=== PATIENT | female | born 1955 | race American Indian/Alaskan Native ===

== ENCOUNTER 2016-11-02 15:51 | Emergency (ER) | payer MEDICAID ==
[2016-11-02 16:54] LABS: Eosinophils % (Auto) 2.3 % (0.0-4.3); Hematocrit 28.4 % (30.3-42.9); Mean Corpuscular HGB Conc 32 % (30-34); Mean Corpuscular Hemoglobin 24 pg (28-32); Mean Corpuscular Volume 77 fl (79-97); Platelet Count 429 K/mm3 (140-440); Red Blood Count 3.67 M/mm3 (3.65-5.03); White Blood Count 5.5 K/mm3 (4.5-11.0)
--- NOTE | 2016-11-02 22:00 | Emergency Department Report ---
ED Female HPI - General Chief complaint: Vaginal Bleeding Stated complaint: VAGINAL BLEEDING Time Seen by Provider: 11/02/16 21:59 Source: patient Mode of arrival: Ambulatory Limitations: No Limitations - History of Present Illness Initial comments: Patient is a 61-year-old female with a history of dysfunctional uterine uterine bleeding for the last year. He presents to the ER today for increased bleeding times one day. Patient reports she went through 5 cemetery pads today. Patient has been passing large clots and increased bleeding which is different from her normal vaginal bleeding. Patient hasn't following with Dr. Anderson and was supposed to see a specialist but could not due to ID issues. The last time the patient was evaluated by an PRIMARY HEALTH CARE NURSE was 3 months ago. She also reports left leg pain times one month and intermittent shortness of breath with exertion times one month. Otherwise no fevers, chills, PALOM[place], N,V,D, , CP, abdominal pain, recent travel, trauma, or sick contacts MD Complaint: vaginal bleeding -: year(s) Severity: moderate Improves with: none Worsens with: none Are you Now?: No Associated Symptoms: vaginal bleeding - Related Data Home Medications Medication Instructions Recorded Confirmed Last Taken Calcium Carbonate [ Calcium 600 mg PO DAILY 09/11/15 09/18/15 09/17/15 21:00 Elemental 600 mg] Cholecalciferol (Vitamin D3) 1,000 unit PO DAILY 09/11/15 09/18/15 09/17/15 21: 00 [Vitamin D] Previous Rx's Medication Instructions Recorded Last Taken Type Ferrous Sulfate [Feosol 325 MG tab] 325 mg PO TID #90 tablet 07/10/15 09/17/15 21:00 Rx medroxyPROGESTERone ACETATE 10 mg PO BID #60 tablet 07/10/15 09/17/15 21:00 Rx [Provera] HYDROcodone/APAP 5-325 [[place] 1 each PO Q6HR PRN #10 tablet 09/18/15 Unknown Rx 5-325 mg TAB] Allergies Allergy/AdvReac Type Severity Reaction Status Date / Time Penicillins Allergy Severe Anaphylaxis Verified 07/03/16 13:44 ED Review of Systems ROS: Stated complaint: VAGINAL BLEEDING Other details as noted in HPI Comment: All other systems reviewed and negative ED Past Medical Hx - Past Medical History Previous Medical History?: Yes Hx Hypertension: No Hx Congestive Heart Failure: No Hx Diabetes: No Hx GERD: Yes (occas) Hx Arthritis: Yes Hx Seizures: No Hx Asthma: No Hx COPD: No Additional medical history: gallstones - Surgical History Past Surgical History?: Yes Additional Surgical History: - Social History Smoking Status: Former Smoker Substance Use Type: None - Medications Home Medications: Home Medications Medication Instructions Recorded Confirmed Last Taken Type Ferrous Sulfate [Feosol 325 MG tab] 325 mg PO TID #90 tablet 07/10/15 09/18/15 09/17/15 21:00 Rx medroxyPROGESTERone ACETATE 10 mg PO BID #60 tablet 07/10/15 09/18/15 09/17/15 21:00 Rx [Provera] Calcium Carbonate [ Calcium 600 mg PO DAILY 09/11/15 09/18/15 09/17/15 21:00 History Elemental 600 mg] Cholecalciferol (Vitamin D3) 1,000 unit PO DAILY 09/11/15 09/18/15 09/17/15 21: 00 History [Vitamin D] HYDROcodone/APAP 5-325 [[place] 1 each PO Q6HR PRN #10 tablet 09/18/15 Unknown Rx 5-325 mg TAB] ED Physical Exam - General Limitations: No Limitations General appearance: alert, in no apparent distress - Head Head exam: Present: atraumatic, normocephalic - Eye Eye exam: Present: normal appearance - ENT ENT exam: Present: mucous membranes moist - Neck Neck exam: Present: normal inspection - Respiratory Respiratory exam: Present: normal lung sounds bilaterally. Absent: respiratory distress - Cardiovascular Cardiovascular Exam: Present: regular rate, normal rhythm. Absent: systolic murmur, diastolic murmur, rubs, gallop - GI/Abdominal GI/Abdominal exam: Present: soft, normal bowel sounds - Extremities Exam Extremities exam: Present: normal inspection, tenderness (left anterior and posterior leg ), normal capillary refill, calf tenderness. Absent: pedal edema , joint swelling - Back Exam Back exam: Present: normal inspection - Neurological Exam Neurological exam: Present: alert, oriented X3 - Psychiatric Psychiatric exam: Present: normal affect, normal mood - Skin Skin exam: Present: warm, dry, intact, normal color. Absent: rash ED Course Vital Signs 11/02/16 11/02/16 11/02/16 15:54 21:12 21:17 Temperature 97.4 F L 98.1 F 98.1 F Pulse Rate 83 54 L 54 L Respiratory 18 18 18 Rate Blood Pressure 140/91 140/81 Blood Pressure 140/81 [Right] O2 Sat by Pulse 99 99 99 Oximetry 11/02/16 11/02/16 22:33 23:47 Temperature 98 F 98 F Pulse Rate 85 88 Respiratory 18 18 Rate Blood Pressure Blood Pressure 123/61 154/72 [Right] O2 Sat by Pulse 99 97 Oximetry ED Medical Decision Making - Lab Data Result diagrams: 11/02/16 16:33 - Radiology Data Radiology results: report reviewed Left lower extremity duplex reviewed peroneal vein could not be viewed due to habitus otherwise no DVT noted. Results discussed with the patient and instructed the patient if she continues to have leg pain in the next few days she needs a repeat ultrasound of her leg. Patient understood. Results of her blood work discussed with the patient and her family at the bedside patient aware her hemoglobin is 9. Patient will be given a prescription to repeat her H and H in 2 days. Patient instructed to return to the ER if she has increased dizziness, shortness of breath, chest pain, and or increased vaginal bleeding. Critical care attestation.: If time is entered above; I have spent that time in minutes in the direct care of this critically ill patient, excluding procedure time. ED Disposition Clinical Impression: Dysfunctional uterine bleeding, Anemia, Left leg pain Disposition: DISCHARGED TO HOME OR SELFCARE Is pt being admited?: No Condition: Stable Instructions: Arthralgia (ED), Dysfunctional Uterine Bleeding (ED), Anemia (ED) Additional Instructions: Patient given a Rx for hemoglobin and hematocrit in 2 days return to the ED for increased bleeding, SOB, and/or dizziness, chest pain. follow up with your manager [facility] for your chronic DUB Referrals: MORE ANDERSON [Other] - 3-5 Days
[2016-11-03 02:04] VITALS: BP 153/77
== END 2016-11-03 02:04 | disposition home or self-care (01) ==
LOC: ED 15:51
DX: N93.8 Other specified abnormal uterine and vaginal bleeding (principal); D64.9 Anemia, unspecified; M79.605 Pain in left leg; K21.9 Gastro-esophageal reflux disease without esophagitis; Z87.891 Personal history of nicotine dependence; Z88.0 Allergy status to penicillin
CPT/HCPCS: 36415; 84702; 85025; 85379; 86850; 86900; 86901

== ENCOUNTER 2018-08-11 02:33 | Emergency (ER) | payer MEDICAID, SELFPAY ==
[2018-08-11 02:52] VITALS: BP 169/80
[2018-08-11] MEDS ORDERED: NACL 0.9% 1000 ML 1,000 ML IV ONE (03:02)
[2018-08-11 03:22] LABS: Basophils # (Auto) 0.1 K/mm3 (0.0-0.1); Basophils % (Auto) 1.3 % (0.0-1.8); Eosinophils # (Auto) 0.2 K/mm3 (0.0-0.4); Eosinophils % (Auto) 3.4 % (0.0-4.3); Hematocrit 35.4 % (30.3-42.9); Hemoglobin 11.3 gm/dl (10.1-14.3); Lymphocytes # (Auto) 1.7 K/mm3 (1.2-5.4); Mean Corpuscular HGB Conc 32 % (30-34); Mean Corpuscular Volume 86 fl (79-97); Monocytes # (Auto) 0.3 K/mm3 (0.0-0.8); Monocytes % (Auto) 5.4 % (0.0-7.3); Platelet Count 366 K/mm3 (140-440); Red Blood Count 4.11 M/mm3 (3.65-5.03); Red Cell Distribution Width 15.1 % (13.2-15.2)
[2018-08-11 03:26] LABS: Bilirubin,Urine NEG (Negative); Blood,Urine LG (Negative); Color,Urine Yellow (Yellow); Mucus,Urine FEW /HPF; Protein,Urine <15 mg/dL mg/dL (Negative); Urobilinogen,Urine < 2.0 mg/dL (<2.0)
[2018-08-11 03:37] LABS: Alanine Aminotransferase 8 units/L (7-56); Albumin 4.5 g/dL (3.9-5); BUN/Creatinine Ratio 8; Blood Urea Nitrogen 5 mg/dL (7-17); Calcium 9.2 mg/dL (8.4-10.2); Hemolysis Index 36
--- NOTE | 2018-08-11 03:41 | Emergency Department Report ---
ED Abdominal Pain HPI - General Chief Complaint: Urogenital-Female Stated Complaint: BLLOD CLOTS IN URINE Time Seen by Provider: 08/11/18 03:28 Source: patient Mode of arrival: Stretcher Limitations: No Limitations - History of Present Illness Initial Comments: Patient is 62 years old female with history of hypertension. Patient presented to the ER complaining of right flank pain that radiates to the suprapubic area. Patient started having pain last evening. She describes her pain as intermittent. Patient also stated that she has been passing clots in her urine. Patient denied any fever, nausea or vomiting. MD Complaint: flank pain -: Last night Location: R flank Radiation: suprapubic Migration to: no migration Severity: moderate Severity scale (0 -10): 5 Consistency: intermittent - Related Data Home Medications Medication Instructions Recorded Confirmed Last Taken Calcium Carbonate [ Calcium 600 mg PO DAILY 09/11/15 03/20/17 09/17/15 21:00 Elemental 600 mg] Cholecalciferol (Vitamin D3) 1,000 unit PO DAILY 09/11/15 03/20/17 09/17/15 21:00 [Vitamin D3] Previous Rx's Medication Instructions Recorded Last Taken Type Docusate Sodium [Colace] 100 mg PO BID #60 capsule 03/21/17 Unknown Rx Famotidine [Pepcid] 20 mg PO BID #60 tablet 03/21/17 Unknown Rx Ferrous Sulfate [Feosol 325 MG tab] 325 mg PO TID #90 tablet 03/21/17 Unknown Rx medroxyPROGESTERone ACETATE 10 mg PO BID #60 tablet 03/21/17 Unknown Rx [Provera] Allergies Allergy/AdvReac Type Severity Reaction Status Date / Time Penicillins Allergy Severe Anaphylaxis Verified 07/03/16 13:44 ED Review of Systems ROS: Stated complaint: BLLOD CLOTS IN URINE Other details as noted in HPI Comment: All other systems reviewed and negative Constitutional: denies: chills, fever Respiratory: denies: cough, orthopnea, shortness of breath, SOB with exertion, SOB at rest Cardiovascular: denies: chest pain, palpitations, dyspnea on exertion Gastrointestinal: abdominal pain. denies: nausea, vomiting, diarrhea, constipation, hematemesis, melena, hematochezia Genitourinary: hematuria Musculoskeletal: back pain Neurological: denies: headache, weakness, numbness, paresthesias, confusion, abnormal gait ED Past Medical Hx - Past Medical History Previous Medical History?: Yes Hx Hypertension: Yes Hx Congestive Heart Failure: No Hx Diabetes: Yes Hx GERD: Yes (occas) Hx Arthritis: Yes Hx Seizures: No Hx Kidney Stones: Yes Hx Asthma: No Hx COPD: No Additional medical history: gallstones - Surgical History Past Surgical History?: No Hx Coronary Stent: No Hx Open Heart Surgery: No Hx Pacemaker: No Hx Internal Defibrillator: No Hx Cholecystectomy: No Hx Appendectomy: No Hx Breast Surgery: No Additional Surgical History: - Social History Smoking Status: Never Smoker Substance Use Type: None - Medications Home Medications: Home Medications Medication Instructions Recorded Confirmed Last Taken Type Calcium Carbonate [ Calcium 600 mg PO DAILY 09/11/15 03/20/17 09/17/15 21:00 History Elemental 600 mg] Cholecalciferol (Vitamin D3) 1,000 unit PO DAILY 09/11/15 03/20/17 09/17/15 21:00 History [Vitamin D3] Docusate Sodium [Colace] 100 mg PO BID #60 capsule 03/21/17 Unknown Rx Famotidine [Pepcid] 20 mg PO BID #60 tablet 03/21/17 Unknown Rx Ferrous Sulfate [Feosol 325 MG tab] 325 mg PO TID #90 tablet 03/21/17 Unknown Rx medroxyPROGESTERone ACETATE 10 mg PO BID #60 tablet 03/21/17 Unknown Rx [Provera] ED Physical Exam - General Limitations: No Limitations General appearance: alert, in no apparent distress - Head Head exam: Present: atraumatic, normocephalic, normal inspection - Eye Eye exam: Present: normal appearance - ENT ENT exam: Present: normal exam, normal orophraynx, mucous membranes moist - Neck Neck exam: Present: normal inspection, full ROM. Absent: tenderness, meningismus, lymphadenopathy, thyromegaly - Respiratory Respiratory exam: Present: normal lung sounds bilaterally - Cardiovascular Cardiovascular Exam: Present: regular rate, normal rhythm, normal heart sounds - GI/Abdominal GI/Abdominal exam: Present: soft, normal bowel sounds. Absent: distended, tenderness, guarding, rebound, rigid, organomegaly, mass, bruit, pulsatile mass, hernia - Extremities Exam Extremities exam: Present: normal inspection, full ROM, normal capillary refill. Absent: pedal edema, calf tenderness - Back Exam Back exam: Present: normal inspection, full ROM, CVA tenderness (R). Absent: tenderness, CVA tenderness (L), muscle spasm, paraspinal tenderness, vertebral tenderness - Neurological Exam Neurological exam: Present: alert, oriented X3, CN II-XII intact, normal gait, reflexes normal - Skin Skin exam: Present: warm, intact, normal color ED Course Vital Signs 08/11/18 02:42 Temperature 97.5 F L Pulse Rate 80 Respiratory 12 Rate Blood Pressure 169/80 O2 Sat by Pulse 98 Oximetry ED Medical Decision Making - Lab Data Result diagrams: 08/11/18 03:08 08/11/18 03:08 - Radiology Data Radiology results: report reviewed Referring Physician: VICKY CHRISTIANSON Patient Name: BRYAN MELCHOR Date of : 1955 Sex: Female Report Date: 2018-08-11 Report Status: [place] [address] Cat Scan Report Signed Patient: BRYAN MELCHOR MR#: [id number] : 1955 Acct:[id number] Age/Sex: 62 / F ADM Date: 08/11/18 Loc: ED Attending Dr: Ordering Physician: VICKY CHRISTIANSON Date of Service: 08/11/18 Procedure(s): CT abdomen pelvis wo con Accession Number(s): [id number] cc: VICKY CHRISTIANSON FINAL REPORT EXAM: CT ABDOMEN PELVIS WO CON HISTORY: right flank pain, hematuria TECHNIQUE: Routine axial imaging was obtained of the abdomen and pelvis without oral or IV contrast. Sagittal and coronal reconstructions were reviewed. FINDINGS: The lung bases are negative for infiltrates or effusions. There is a small hiatal hernia. The liver, gallbladder, biliary tree, pancreas, spleen, and adrenal glands appear normal. The kidneys show no evidence of stones or hydronephrosis. The bowel loops are normal in caliber and course. There are few scattered uncomplicated colonic diverticula in the descending colon. The appendix is not enlarged. There is no evidence of free fluid or adenopathy. In the pelvis the uterus is enlarged containing coarse calcifications suggesting involuted fibroids. Bladder appears normal. The skeletal structures reveal multilevel disc degeneration lumbar spine with additional arthritic changes of the SI joints and symphysis pubis. IMPRESSION: No acute process in the abdomen and pelvis. No evidence of renal stones or hydronephrosis. Normal appendix. Uncomplicated colonic diverticula in the descending colon. Degenerative arthritic changes lumbar spine, SI joints and symphysis pubis. Transcribed By: RB Dictated By: ROEL FERREIRA MD Electronically Authenticated By: ROEL FERREIRA MD Signed Date/Time: 08/11/18531 DD/ 2 TD/TT: 08/11/18532 - Medical Decision Making Patient is 62 years old female with history of hypertension. Patient presented to the ER complaining of right flank pain that radiates to the suprapubic area. Patient started having pain last evening. She describes her pain as intermittent. Patient also stated that she has been passing clots in her urine. Patient denied any fever, nausea or vomiting. Patient is pain-free. She stated that she is feeling much better. CT abdomen and pelvis did not show anything acute. UTI is present in the urine with hematuria. I will start patient on ciprofloxacin and advised her to follow up with her primary care physician in the next 2-3 days. Critical care attestation.: If time is entered above; I have spent that time in minutes in the direct care of this critically ill patient, excluding procedure time. ED Disposition Clinical Impression: Abdominal pain, UTI (urinary tract infection) Disposition: - TO HOME OR SELFCARE Is pt being admited?: No Condition: Stable Instructions: Abdominal Pain (ED), Urinary Tract Infection in Women (ED) Referrals: PRIMARY CAREMD [Referring] - 3-5 Days
[2018-08-11 04:04] LABS: INR 0.91 (0.87-1.13)
[2018-08-11 04:05] LABS: Partial Thromboplastin Time 23.1 Sec. (24.2-36.6)
--- NOTE | 2018-08-11 05:32 | Cat Scan Report ---
FINAL REPORT EXAM: CT ABDOMEN PELVIS WO CON HISTORY: right flank pain, hematuria TECHNIQUE: Routine axial imaging was obtained of the abdomen and pelvis without oral or IV contrast. Sagittal and coronal reconstructions were reviewed. FINDINGS: The lung bases are negative for infiltrates or effusions. There is a small hiatal hernia. The liver, gallbladder, biliary tree, pancreas, spleen, and adrenal glands appear normal. The kidneys show no evidence of stones or hydronephrosis. The bowel loops are normal in caliber and course. Ther e are few scattered uncomplicated colonic diverticula in the descending colon. The appendix is not en larged. There is no evidence of free fluid or adenopathy. In the pelvis the uterus is enlarged contai toi coarse calcifications suggesting involuted fibroids. Bladder appears normal. The skeletal struct ures reveal multilevel disc degeneration lumbar spine with additional arthritic changes of the SI jocelyn nts and symphysis pubis. IMPRESSION: No acute process in the abdomen and pelvis. No evidence of renal stones or hydronephrosis. Normal appendix. Uncomplicated colonic diverticula in the descending colon. Degenerative arthritic changes lumbar spine, SI joints and symphysis pubis.
== END 2018-08-11 06:50 | disposition home or self-care (01) ==
LOC: ED 02:33
DX: N39.0 Urinary tract infection, site not specified (principal); I10 Essential (primary) hypertension; E11.9 Type 2 diabetes mellitus without complications; Z87.442 Personal history of urinary calculi; Z88.0 Allergy status to penicillin
CPT/HCPCS: 36415; 74176; 80053; 81001; 85025; 85610; 85730; 99284; J7030

== ENCOUNTER 2019-01-12 13:56 | Emergency (ER) | payer MEDICAID ==
[2019-01-12] MEDS ORDERED: NACL 0.9% 1000 ML 1,000 ML IV ONE (15:49)
[2019-01-12 16:23] LABS: Basophils # (Auto) 0.1 K/mm3 (0.0-0.1); Eosinophils # (Auto) 0.1 K/mm3 (0.0-0.4); Eosinophils % (Auto) 0.6 % (0.0-4.3); Hematocrit 36.8 % (30.3-42.9); Hemoglobin 11.6 gm/dl (10.1-14.3); Lymphocytes # (Auto) 1.1 K/mm3 (1.2-5.4); Lymphocytes % (Auto) 13.5 % (13.4-35.0); Mean Corpuscular HGB Conc 32 % (30-34); Mean Corpuscular Volume 77 fl (79-97); Monocytes # (Auto) 0.5 K/mm3 (0.0-0.8); Monocytes % (Auto) 5.6 % (0.0-7.3); Platelet Count 362 K/mm3 (140-440); Red Blood Count 4.79 M/mm3 (3.65-5.03)
[2019-01-12 16:45] LABS: Bilirubin,Urine NEG (Negative); Blood,Urine MOD (Negative); Color,Urine Yellow (Yellow); Hyaline Casts,Urine 18 /LPF; Mucus,Urine 3+ /HPF; Urobilinogen,Urine < 2.0 mg/dL (<2.0)
[2019-01-12 17:01] LABS: Alanine Aminotransferase 9 units/L (7-56); Albumin 4.4 g/dL (3.9-5); BUN/Creatinine Ratio 14; Blood Urea Nitrogen 11 mg/dL (7-17); Hemolysis Index 39
[2019-01-12 18:38] VITALS: BP 127/60
--- NOTE | 2019-01-12 18:55 | Cat Scan Report ---
PROCEDURE: CT HEAD/BRAIN WO CON TECHNIQUE: Computerized tomography of the head was performed without contrast material. CT DOSE LENGTH PRODUCT: 920.5 mGycm HISTORY: Syncope COMPARISONS: Head CT dated March 20, 2017 . FINDINGS: There is no evidence of an acute intracranial process or intracranial hemorrhage. Again noted is the bony sella enlargement which is largely CSF filled consistent with an "empty sella ". The ventricles are normal size. The visualized portions of the orbits, paranasal and mastoid sinuses are notable for mild to moderate left maxillary sinus and left ethmoid sinus mucosal thickening. The bony structures are unremarkable. There is no evidence of fracture. IMPRESSION: 1. No evidence of an acute intracranial process nor intracranial hemorrhage. 2. Repeat demonstration of bony sella enlargement which is largely CSF filled consistent with an "emp ty sella". 2. No evidence of fracture. 3. Left maxillary and ethmoid sinus mucosal thickening.. This document is electronically signed by Jessie Nelson MD., January 12 2019 06:53:51 PM ET
--- NOTE | 2019-01-12 19:00 | Emergency Department Report ---
ED Syncope HPI - General Chief Complaint: Syncope Stated Complaint: FALL Time Seen by Provider: 01/12/19 15:49 - History of Present Illness Initial Comments: pt reports ground level fall after syncopal episode. Pt states she was getting up from her chair and felt lightheaded and dizzy and fell to the floor. pt denies hitting her head. Timing/Prior Episodes: no prior history Precipitating Factors: Positive: none Context: standing Loss of Consciousness: brief (seconds) Current Symptoms: back to normal - Related Data Allergies/Adverse Reactions: Allergies Penicillins Allergy (Severe, Verified 07/03/16 13:44) Anaphylaxis face and neck swell, along with rash. Home Medications: Ambulatory Orders Calcium Carbonate [ Calcium Elemental 600 mg] 600 mg PO DAILY 09/11/15 Cholecalciferol (Vitamin D3) [Vitamin D3] 1,000 unit PO DAILY 09/11/15 Docusate Sodium [Colace] 100 mg PO BID #60 capsule 03/21/17 Famotidine [Pepcid] 20 mg PO BID #60 tablet 03/21/17 Ferrous Sulfate [Feosol 325 MG tab] 325 mg PO TID #90 tablet 03/21/17 medroxyPROGESTERone ACETATE [Provera] 10 mg PO BID #60 tablet 03/21/17 Ciprofloxacin HCl [Ciprofloxacin TAB] 500 mg PO Q12H #14 tab 08/11/18 Ketorolac [Toradol] 10 mg PO Q6H PRN #20 tablet 08/11/18 Ciprofloxacin HCl [Ciprofloxacin TAB] 500 mg PO Q12HR #14 tab 01/12/19 ED Review of Systems ROS: Stated complaint: FALL Other details as noted in HPI Comment: All other systems reviewed and negative Constitutional: no symptoms reported Respiratory: denies: cough, orthopnea Cardiovascular: denies: chest pain, palpitations Endocrine: denies: excessive sweating, flushing Gastrointestinal: denies: abdominal pain, nausea Genitourinary: denies: urgency Skin: denies: rash Neurological: denies: headache, weakness, numbness, paresthesias, confusion ED Past Medical Hx - Past Medical History Hx Hypertension: Yes Hx Congestive Heart Failure: No Hx Diabetes: Yes Hx GERD: Yes (occas) Hx Arthritis: Yes Hx Seizures: No Hx Kidney Stones: Yes Hx Asthma: No Hx COPD: No Additional medical history: gallstones - Surgical History Hx Coronary Stent: No Hx Open Heart Surgery: No Hx Pacemaker: No Hx Internal Defibrillator: No Hx Cholecystectomy: No Hx Appendectomy: No Hx Breast Surgery: No Additional Surgical History: - Social History Smoking Status: Former Smoker Substance Use Type: None - Medications Home Medications: Home Medications Medication Instructions Recorded Confirmed Last Taken Type Calcium Carbonate [ Calcium 600 mg PO DAILY 09/11/15 03/20/17 09/17/15 21:00 History Elemental 600 mg] Cholecalciferol (Vitamin D3) 1,000 unit PO DAILY 09/11/15 03/20/17 09/17/15 21:00 History [Vitamin D3] Docusate Sodium [Colace] 100 mg PO BID #60 capsule 03/21/17 Unknown Rx Famotidine [Pepcid] 20 mg PO BID #60 tablet 03/21/17 Unknown Rx Ferrous Sulfate [Feosol 325 MG tab] 325 mg PO TID #90 tablet 03/21/17 Unknown Rx medroxyPROGESTERone ACETATE 10 mg PO BID #60 tablet 03/21/17 Unknown Rx [Provera] Ciprofloxacin HCl [Ciprofloxacin 500 mg PO Q12H #14 tab 08/11/18 Unknown Rx TAB] Ketorolac [Toradol] 10 mg PO Q6H PRN #20 tablet 08/11/18 Unknown Rx Ciprofloxacin HCl [Ciprofloxacin 500 mg PO Q12HR #14 tab 01/12/19 Unknown Rx TAB] ED Physical Exam - General Limitations: No Limitations General appearance: alert, in no apparent distress - Head Head exam: Present: atraumatic, normocephalic - Eye Eye exam: Present: normal appearance, PERRL, EOMI Pupils: Present: normal accommodation - ENT ENT exam: Present: normal exam, normal orophraynx - Neck Neck exam: Present: normal inspection - Respiratory Respiratory exam: Present: normal lung sounds bilaterally - Cardiovascular Cardiovascular Exam: Present: regular rate, normal rhythm - GI/Abdominal GI/Abdominal exam: Present: soft - Extremities Exam Extremities exam: Present: normal inspection - Back Exam Back exam: Present: normal inspection - Neurological Exam Neurological exam: Present: alert, oriented X3 - Psychiatric Psychiatric exam: Present: normal affect, normal mood ED Course Vital Signs 01/12/19 01/12/19 01/12/19 14:00 15:29 15:31 Temperature 98.1 F Pulse Rate 89 84 85 Respiratory 18 17 11 L Rate Blood Pressure 136/77 122/72 Blood Pressure 144/97 [Right] O2 Sat by Pulse 99 100 99 Oximetry 01/12/19 01/12/19 01/12/19 16:07 17:01 18:13 Temperature Pulse Rate 89 Respiratory 18 16 Rate Blood Pressure 144/97 138/70 127/60 Blood Pressure [Right] O2 Sat by Pulse 100 98 99 Oximetry ED Medical Decision Making - Lab Data Result diagrams: 01/12/19 16:07 01/12/19 16:07 - EKG Data -: EKG Interpreted by Me EKG shows normal: sinus rhythm Rate: normal - EKG Data When compared to previous EKG there are: no significant change Interpretation: no acute changes 01/12/19 19:07 Rate 74 - Medical Decision Making pt reports ground level fall after syncopal episode. Pt states she was getting up from her chair and felt lightheaded and dizzy and fell to the floor. pt denies hitting her head. Patient observed in ED in no new symptoms. Feels better, urine is consistent with infection, we discharge home. - Differential Diagnosis syncope, vasovagal syncope, orthostatic hypotension Critical care attestation.: If time is entered above; I have spent that time in minutes in the direct care of this critically ill patient, excluding procedure time. ED Disposition Clinical Impression: Syncope Qualifiers: Syncope type: vasovagal syncope Qualified Code(s): R55 - Syncope and collapse UTI (urinary tract infection) Qualifiers: Urinary tract infection type: acute cystitis Hematuria presence: without hematuria Qualified Code(s): N30.00 - Acute cystitis without hematuria Disposition: - TO HOME OR SELFCARE Is pt being admited?: No Does the pt Need Aspirin: No Condition: Stable Instructions: Urinary Tract Infection in Women (ED), Syncope (ED), Dysuria (ED) Prescriptions: Ciprofloxacin HCl [Ciprofloxacin TAB] 500 mg PO Q12HR #14 tab Referrals: KIM MEYERS MD [Primary Care Provider] - 3-5 Days
== END 2019-01-12 19:55 | disposition home or self-care (01) ==
LOC: ED 13:56
DX: R55 Syncope and collapse (principal); R42 Dizziness and giddiness; N30.00 Acute cystitis without hematuria; I10 Essential (primary) hypertension; E11.9 Type 2 diabetes mellitus without complications; M19.90 Unspecified osteoarthritis, unspecified site; Z87.891 Personal history of nicotine dependence; Z87.442 Personal history of urinary calculi; Z88.0 Allergy status to penicillin; W18.30XA Fall on same level, unspecified, initial encounter; Y93.89 Activity, other specified; Y92.89 Other specified places as the place of occurrence of the external cause; Y99.8 Other external cause status
CPT/HCPCS: 36415; 70450; 80053; 81001; 84484; 85025; 87086; 93005; 93010; 96360; 96361; 99285; J7030

== ENCOUNTER 2021-11-21 14:14 | Emergency (ER) | payer MEDICAID ==
--- NOTE | 2021-11-21 16:03 | XRay Report ---
CHEST 1 VIEW 11/21/2021 3:36 PM INDICATION / CLINICAL INFORMATION: cp. COMPARISON: 03/20/2017. FINDINGS: SUPPORT DEVICES: None. HEART / MEDIASTINUM: No significant abnormality. LUNGS / PLEURA: No significant pulmonary or pleural abnormality. No pneumothorax. ADDITIONAL FINDINGS: No significant additional findings. IMPRESSION: No acute abnormality. Signer Name: Getachew Estrella MD Signed: 11/21/2021 3:58 PM Workstation Name: [id number]
[2021-11-21 16:42] LABS: Blood Urea Nitrogen 5 mg/dL (7-17); Calcium 9.6 mg/dL (8.4-10.2); Hemolysis Index 2
[2021-11-21 16:43] LABS: BUN/Creatinine Ratio 10
--- NOTE | 2021-11-21 16:51 | Emergency Department Report ---
ED Chest Pain HPI - General Chief Complaint: Chest Pain Stated Complaint: VAG BLEEDING PUI?: No Time Seen by Provider: 11/21/21 16:45 Source: EMS Mode of arrival: Stretcher Limitations: No Limitations - History of Present Illness Initial Comments: Patient is a 66-year-old female who presents emergency room with right-sided chest pain. Patient states her chest pain started 4 hours ago. Patient states the chest pain is better with rest and worse with movement. Patient states the pain is also worse with palpation. Patient denies fever and chills. Patient denies left-sided chest pain. Patient denies shortness of breath. Patient states the chest pain was nonradiating. Patient states she is also having vaginal bleeding. Patient dates she has a history of fibroids and is interested in a hysterectomy. Patient denies abdominal pain. Patient denies recent travel. Patient denies recent international travel. [place] ent denies exposure to the novel coronavirus. Patient denies sick contacts. Patient denies fever and chills. Patient denies cough. Patient denies diarrhea. Patient denies coming in contact with anybody with symptoms of the novel coronavirus. MD Complaint: chest pain -: Sudden Onset: during rest Pain Location: right chest Pain Radiation: none Severity scale (0 -10): 6 Quality: sharp Consistency: constant Improves With: rest Worsens With: palpation, movement re: denies: nausea, vomting, diaphoresis, dyspnea, sense of impending doom Other Symptoms: denies: cough, fever, syncope, rash, acid taste in mouth, leg swelling, palpitations, burping Treatments Prior to Arrival: none Aspirin use within the Past 7 Days: (1) Yes - Related Data On Oral Contraceptives: No Home Medications Medication Instructions Recorded Confirmed Last Taken Calcium Carbonate [ Calcium 600 mg PO DAILY 09/11/15 03/20/17 09/17/15 21:00 Elemental 600 mg] Cholecalciferol (Vitamin D3) 1,000 unit PO DAILY 09/11/15 03/20/17 09/17/15 21:00 [Vitamin D3] Previous Rx's Medication Instructions Recorded Last Taken Type Docusate Sodium [Colace] 100 mg PO BID #60 capsule 03/21/17 Unknown Rx Famotidine [Pepcid] 20 mg PO BID #60 tablet 03/21/17 Unknown Rx Ferrous Sulfate [Feosol 325 MG tab] 325 mg PO TID #90 tablet 03/21/17 Unknown Rx medroxyPROGESTERone ACETATE 10 mg PO BID #60 tablet 03/21/17 Unknown Rx [Provera] Ciprofloxacin HCl [Ciprofloxacin 500 mg PO Q12H #14 tab 08/11/18 Unknown Rx TAB] Ketorolac [Toradol] 10 mg PO Q6H PRN #20 tablet 08/11/18 Unknown Rx Ciprofloxacin HCl [Ciprofloxacin 500 mg PO Q12HR #14 tab 01/12/19 Unknown Rx TAB] Ferrous Sulfate [Ferrous Sulfate 324 mg PO TID #30 tablet.dr 03/26/19 Unknown Rx 324 MG] Ibuprofen [Motrin 600 MG tab] 600 mg PO Q8H PRN #20 tablet 03/26/19 Unknown Rx medroxyPROGESTERone ACETATE 5 mg PO QDAY #7 tablet 03/26/19 Unknown Rx [Provera] Iron Fum,Ps/Folic/Bcomp,C No.9 1 each PO BID 30 Days #60 cap 11/21/21 Unknown Rx [Integra Plus Capsule] traMADoL [Ultram 50 MG tab] 50 mg PO Q6HR PRN #12 tablet 11/21/21 Unknown Rx Allergies Allergy/AdvReac Type Severity Reaction Status Date / Time Penicillins Allergy Severe Anaphylaxis Verified 07/03/16 13:44 Heart Score - HEART Score History: Slightly suspicious EKG: Normal Age: 45-65 Risk factors: 1-2 risk factors Troponin: < normal limit HEART Score: 2 - EKG Read Time Time EKG Completed: 00:00 EKG Read Time: 00:00 ED Review of Systems ROS: Stated complaint: VAG BLEEDING Other details as noted in HPI Constitutional: denies: chills, fever Eyes: denies: eye pain, eye discharge, vision change ENT: denies: ear pain, throat pain Respiratory: denies: cough, shortness of breath, wheezing Cardiovascular: as per HPI, chest pain. denies: palpitations Endocrine: no symptoms reported Gastrointestinal: denies: abdominal pain, nausea, diarrhea Genitourinary: denies: urgency, dysuria, discharge Musculoskeletal: denies: back pain, joint swelling, arthralgia Skin: denies: rash, lesions Neurological: denies: headache, weakness, paresthesias Psychiatric: denies: anxiety, depression Hematological/Lymphatic: denies: easy bleeding, easy bruising ED Past Medical Hx - Past Medical History Previous Medical History?: Yes Hx Hypertension: Yes Hx Congestive Heart Failure: No Hx Diabetes: Yes Hx GERD: Yes (occas) Hx Arthritis: Yes Hx Seizures: No Hx Kidney Stones: Yes Hx Asthma: No Hx COPD: No Additional medical history: gallstones - Surgical History Past Surgical History?: Yes Hx Coronary Stent: No Hx Open Heart Surgery: No Hx Pacemaker: No Hx Internal Defibrillator: No Hx Cholecystectomy: No Hx Appendectomy: No Hx Breast Surgery: No Additional Surgical History: - Family History Family history: no significant - Social History Smoking Status: Never Smoker Substance Use Type: None - Medications Home Medications: Home Medications Medication Instructions Recorded Confirmed Last Taken Type Calcium Carbonate [ Calcium 600 mg PO DAILY 09/11/15 03/20/17 09/17/15 21:00 History Elemental 600 mg] Cholecalciferol (Vitamin D3) 1,000 unit PO DAILY 09/11/15 03/20/17 09/17/15 21:00 History [Vitamin D3] Docusate Sodium [Colace] 100 mg PO BID #60 capsule 03/21/17 Unknown Rx Famotidine [Pepcid] 20 mg PO BID #60 tablet 03/21/17 Unknown Rx Ferrous Sulfate [Feosol 325 MG tab] 325 mg PO TID #90 tablet 03/21/17 Unknown Rx medroxyPROGESTERone ACETATE 10 mg PO BID #60 tablet 03/21/17 Unknown Rx [Provera] Ciprofloxacin HCl [Ciprofloxacin 500 mg PO Q12H #14 tab 08/11/18 Unknown Rx TAB] Ketorolac [Toradol] 10 mg PO Q6H PRN #20 tablet 08/11/18 Unknown Rx Ciprofloxacin HCl [Ciprofloxacin 500 mg PO Q12HR #14 tab 01/12/19 Unknown Rx TAB] Ferrous Sulfate [Ferrous Sulfate 324 mg PO TID #30 tablet. 03/26/19 Unknown Rx 324 MG] Ibuprofen [Motrin 600 MG tab] 600 mg PO Q8H PRN #20 tablet 03/26/19 Unknown Rx medroxyPROGESTERone ACETATE 5 mg PO QDAY #7 tablet 03/26/19 Unknown Rx [Provera] Iron Fum,Ps/Folic/Bcomp,C No.9 1 each PO BID 30 Days #60 cap 11/21/21 Unknown Rx [Integra Plus Capsule] traMADoL [Ultram 50 MG tab] 50 mg PO Q6HR PRN #12 tablet 11/21/21 Unknown Rx ED Physical Exam - General Limitations: No Limitations General appearance: alert, in no apparent distress - Head Head exam: Present: atraumatic, normocephalic - Eye Eye exam: Present: normal appearance - ENT ENT exam: Present: mucous membranes moist - Neck Neck exam: Present: normal inspection - Respiratory Respiratory exam: Present: normal lung sounds bilaterally, chest wall tenderness (Right-sided chest tenderness to palpation. Palpation of the right-sided chest reproduces symptoms.). Absent: respiratory distress - Cardiovascular Cardiovascular Exam: Present: regular rate, normal rhythm. Absent: systolic murmur, diastolic murmur, rubs, gallop - GI/Abdominal GI/Abdominal exam: Present: soft, normal bowel sounds - Extremities Exam Extremities exam: Present: normal inspection - Back Exam Back exam: Present: normal inspection - Neurological Exam Neurological exam: Present: alert, oriented X3 - Psychiatric Psychiatric exam: Present: normal affect, normal mood - Skin Skin exam: Present: warm, dry, intact, normal color. Absent: rash ED Course Vital Signs 11/21/21 11/21/21 11/21/21 14:48 16:46 17:00 Temperature 98.1 F Pulse Rate 77 68 68 Respiratory 16 15 12 Rate Blood Pressure 129/77 123/64 Blood Pressure 128/77 [Right] O2 Sat by Pulse 98 97 96 Oximetry 11/21/21 17:30 Temperature Pulse Rate 63 Respiratory 18 Rate Blood Pressure 130/70 Blood Pressure [Right] O2 Sat by Pulse 96 Oximetry - Reevaluation(s) Reevaluation #1: Patient states the pain has resolved. I discussed all results and clinical findings with patient. I discussed plan of care with patient. Patient agrees with plan of care. Patient is stable for discharge. Patient will be discharged home. Patient given discharge instructions. Patient voiced understanding of discharge instructions. 11/21/21 18:27 RITESH score - Ritesh Score Age > 65: (0) No Aspirin use within the Past 7 Days: (0) No 3 or more CAD Risk Factors: (0) No 2 or more Angina events in past 24 hrs: (0) No Known CAD with more than 50% Stenosis: (0) No Elevated Cardiac Markers: (0) No ST Deviation Greater than 0.5mm: (0) No RITESH Score: 0 ED Medical Decision Making - Lab Data Result diagrams: 11/21/21 16:05 11/21/21 16:05 - EKG Data -: EKG Interpreted by Me EKG shows normal: sinus rhythm, axis, intervals, QRS complexes, ST-T waves Rate: normal - Radiology Data Radiology results: report reviewed, image reviewed interpreted by me: Chest x-ray: No pneumonia, no pneumothorax, no foreign body, no osseous findings, no acute findings CHEST 1 VIEW 11/21/2021 3:36 PM INDICATION / CLINICAL INFORMATION: cp. COMPARISON: 03/20/2017. FINDINGS: SUPPORT DEVICES: None. HEART / MEDIASTINUM: No significant abnormality. LUNGS / PLEURA: No significant pulmonary or pleural abnormality. No pneumothorax. ADDITIONAL FINDINGS: No significant additional findings. IMPRESSION: No acute abnormality. - Medical Decision Making Patient is a 66-year-old female that presents emergency room for right-sided chest pain and dysfunctional uterine bleeding. Patient states she been having abnormal uterine bleeding due to fibroids for many months. Patient states she is already taking iron. Patient states she is not compliant with her iron at times. Patient had a cardiac work-up and was essentially unremarkable. Patient's patient's chest pain is on the right side and is reproducible with palpation. Patient has right-sided chest wall tenderness. Patient's labs are essentially markable except for anemia. Patient will be given an iron supplement. Patient had a chest x-ray which was negative for acute findings. Patient had EKG which was negative for acute findings. I personally reviewed EKG and chest x-ray. Patient is stable for discharge. Patient not require any further emergency medical service. Patient not require inpatient services. I discussed all results and clinical findings with patient. I discussed plan of care with patient. Patient agrees with plan of care. Patient is stable for discharge. Patient will be discharged home. Patient given discharge instructions. Patient voiced understanding of discharge instructions. - Differential Diagnosis Chest wall pain, dysfunctional uterine bleeding, fibroid, anemia Critical care attestation.: If time is entered above; I have spent that time in minutes in the direct care of this critically ill patient, excluding procedure time. ED Disposition Clinical Impression: Abnormal uterine bleeding, DUB (dysfunctional uterine bleeding), Right-sided chest wall pain Anemia Qualifiers: Anemia type: unspecified type Qualified Code(s): D64.9 - Anemia, unspecified Disposition: 01 HOME / SELF CARE / HOMELESS Is pt being admited?: No Does the pt Need Aspirin: No Condition: Stable Instructions: Nonspecific Chest Pain, Adult Additional Instructions: Patient to follow-up with primary care in 2 to 3 days. Patient to follow-up with [facility] in 2 to 3 days. Patient to rest. Patient to increase water. Patient to avoid strenuous exercise or heavy lifting until cleared by [facility]. Patient to take Tylenol or ibuprofen as needed for pain. Patient to take meds as directed. Patient to return to the ER if condition worsens, changes or new s ymptoms arise. Prescriptions: Iron Fum,Ps/Folic/Bcomp,C No.9 [Integra Plus Capsule] 1 each PO BID 30 Days #60 cap traMADoL [Ultram 50 MG tab] 50 mg PO Q6HR PRN #12 tablet PRN Reason: Pain Referrals: PRIMARY CAREMD [Primary Care Provider] - 2-3 Days MIKE KWOK MD [Staff Physician] - 2-3 Days Time of Disposition: 18:31
[2021-11-21 16:55] LABS: Basophils % (Auto) 0.9 % (0.0-1.8); Eosinophils # (Auto) 0.2 K/mm3 (0.0-0.4); Eosinophils % (Auto) 3.5 % (0.0-4.3); Hematocrit 30.6 % (30.3-42.9); Hemoglobin 9.7 gm/dl (10.1-14.3); Lymphocytes # (Auto) 1.3 K/mm3 (1.2-5.4); Lymphocytes % (Auto) 24.8 % (13.4-35.0); Mean Corpuscular HGB Conc 32 % (30-34); Mean Corpuscular Volume 77 fl (79-97); Monocytes # (Auto) 0.4 K/mm3 (0.0-0.8); Monocytes % (Auto) 6.9 % (0.0-7.3); Platelet Count 445 K/mm3 (140-440); Red Cell Distribution Width 19.7 % (13.2-15.2)
[2021-11-21 17:04] LABS: INR 0.88 (0.87-1.13)
[2021-11-21 17:05] LABS: Partial Thromboplastin Time 34.3 Sec. (24.2-36.6)
[2021-11-21 17:35] VITALS: BP 130/70
--- NOTE | 2021-11-24 13:14 | Electrocardiograph Report ---
[facility] Test Date: 2021-11-21 Test Time: 16:03:15 Pat Name: BRYAN HEAD Department: Room: Gender: F Html Developer: NEREYDA : 1955 Requested By: ANDREW ENRIQUEZ Order Number: [id number] Reading MD: Ene Sebastian Measurements Intervals [place] Rate: 71 P: 50 [place]: 170 QRS: 41 QRSD: 88 T: 72 QT: 402 QTc: 438 Interpretive Statements Sinus rhythm Nonspecific T abnormalities, lateral leads No previous ECG available for comparison Electronically Signed On 11-24-2021 13:13:36 EDT by Ene Sebastian
== END 2021-11-21 19:11 | disposition home or self-care (01) ==
LOC: ED 14:14
DX: N93.8 Other specified abnormal uterine and vaginal bleeding (principal); R07.9 Chest pain, unspecified; D64.9 Anemia, unspecified; I10 Essential (primary) hypertension; E11.9 Type 2 diabetes mellitus without complications
CPT/HCPCS: 36415; 71045; 80048; 84484; 85025; 85610; 85730; 93005; 99284